=== PATIENT | female | born 1985 | race Asian ===

== ENCOUNTER 2016-12-16 06:57 | Inpatient (IN) | payer SELFPAY ==
[~2016-12-16] VITALS: Ht 167.6 cm; Wt 74.8 kg
[2016-12-16] MEDS ORDERED: LR 1,000 ML IV SCH (08:09)
[2016-12-16] MEDS ORDERED: OXYTOCIN/NORMAL SALINE 1,000 ML IV SCH (08:09)
[2016-12-16] MEDS ORDERED: LR 500 ML IV ONE ×2 (08:09→18:04)
[2016-12-16] MEDS ORDERED: NALBUPHINE HCL 10 MG/ML AMP IVP PRN (08:15)
[2016-12-16] MEDS ORDERED: NALBUPHINE HCL 10 MG/ML AMP IM PRN (08:15)
[2016-12-16] MEDS ORDERED: TERBUTALINE SULFATE 1 MG/ML VIAL SUBCUT ONE (08:15)
[2016-12-16 09:28] LABS: BASOPHILS % (AUTO) 0.3 % (0.0-2.0); EOSINOPHILS # (AUTO) 0.1 K/uL (0.0-0.4); HEMATOCRIT 36.5 % (36-48); HEMOGLOBIN 12.6 g/dL (12.0-16.0); LYMPHOCYTES # (AUTO) 1.5 K/uL (1.0-5.5); LYMPHOCYTES % (AUTO) 25.5 % (20.5-51.5); MEAN CORPUSCULAR HEMOGLOBIN 32 pg (27-31); MEAN CORPUSCULAR HGB CONC 35 % (32-36); MEAN CORPUSCULAR VOLUME 91 fL (79.0-98.0); MONOCYTES # (AUTO) 0.4 K/uL (0.0-1.0); MONOCYTES % (AUTO) 6.5 % (1.7-9.3); NEUTROPHILS % (AUTO) 66.7 % (40.0-70.0); PLATELET COUNT (AUTO) 118 K/uL (130-430); RED BLOOD CELL COUNT(AUTO) 3.99 MIL/uL (4.2-6.2); RED CELL DISTRIBUTION WIDTH 12.1 % (9.0-15.0)
[2016-12-16 11:07] VITALS: BP 131/87; PULSE 78; RESP 18; TEMP 98.2
[2016-12-16] MEDS ORDERED: FENT2mCg/mL-ROPIVA0.2%/NS EPID 150 ML EP SCH (15:09)
[2016-12-16] MEDS ORDERED: FENT2mCg/mL-ROPIVA0.2%/NS EPID 150 ML EP ONE (15:09)
[2016-12-16] MEDS ORDERED: ePHEDrine sulfate 50 MG/ML VIAL IVP PRN (18:15)
[2016-12-17] MEDS ORDERED: FENT2mCg/mL-ROPIVA0.2%/NS EPID 150 ML EP ONE (01:06)
[2016-12-17] MEDS ORDERED: METHYLERGONOVINE MALEATE 0.2 MG/ML AMP ONE (07:42)
[2016-12-17] MEDS ORDERED: HYDROcodone/ACETAMIN 5-325 MG TAB (NORCO/ VICODIN) PO PRN (08:00)
[2016-12-17] MEDS ORDERED: DERMOPLAST SPRAY TP PRN (08:00)
[2016-12-17] MEDS ORDERED: DIPH-TET-PERTUS Vaccine 0.5 ML VIAL (ADACEL) I.M. PRN (08:00)
[2016-12-17] MEDS ORDERED: TEMAZEPAM 15 MG CAPSULE PO PRN (08:00)
[2016-12-17] MEDS ORDERED: METHYLERGONOVINE MALEATE 0.2 MG/ML AMP IM PRN (08:00)
[2016-12-17] MEDS ORDERED: MEASLES,MUMPS&RUBELLA VACC/PF 12500 UNIT/0.5 ML VIAL SUBQ PRN (08:00)
[2016-12-17] MEDS ORDERED: OXYTOCIN 10 UNIT/ML VIAL IM PRN (08:00)
[2016-12-17] MEDS: OXYCODONE/ACETAMINOPHEN 5-325 TABLET PO PRN (08:19)
[2016-12-17] MEDS: FERROUS SULFATE 325 MG TABLET.DR PO SCH ×2 (09:35→15:41)
[2016-12-17] MEDS: IBUPROFEN 800 MG TABLET PO PRN ×3 (12:28→23:45)
[2016-12-17] MEDS ORDERED: SENNOSIDES/DOCUSATE SODIUM 1 TAB TABLET(SENOKOT-S) PO SCH (21:00)
[2016-12-18] MEDS: IBUPROFEN 800 MG TABLET PO PRN ×3 (06:04→17:20)
[2016-12-18 06:53] LABS: HEMATOCRIT 27.2 % (36-48); HEMOGLOBIN 9.2 g/dL (12.0-16.0)
[2016-12-18] MEDS ORDERED: MILK OF MAGNESIA 30 ML UDC PO ONE (08:00)
[2016-12-18] MEDS: FERROUS SULFATE 325 MG TABLET.DR PO SCH ×3 (09:00→22:20)
[2016-12-18] MEDS: OXYCODONE/ACETAMINOPHEN 5-325 TABLET PO PRN ×2 (10:37→22:21)
[2016-12-18] MEDS ORDERED: FLU VACC QS 2016-17(36MOS+)/PF 0.5 ML/SYR SYRINGE I.M. PRN (16:45)
[2016-12-19] MEDS: IBUPROFEN 800 MG TABLET PO PRN (04:29)
[2016-12-19] MEDS: OXYCODONE/ACETAMINOPHEN 5-325 TABLET PO PRN (08:51)
[2016-12-19] MEDS: FERROUS SULFATE 325 MG TABLET.DR PO SCH (09:00)
== END 2016-12-19 17:00 | disposition home or self-care (01) | DRG 775 ==
LOC: SPU 06:57
PROVIDERS: ADMIT Obstetrics & Gynecology; ATTEND Obstetrics & Gynecology
PROC: 10E0XZZ Delivery of Products of Conception, External Approach (ICD-10-PCS; principal; 2016-12-17)
PROC: 0W8NXZZ Division of Female Perineum, External Approach (ICD-10-PCS; 2016-12-17)
PROC: 3E0S3CZ (ICD-10-PCS; 2016-12-17)
PROC: 00HU33Z Insertion of Infusion Device into Spinal Canal, Percutaneous Approach (ICD-10-PCS; 2016-12-17)
DX: O80 Encounter for full-term uncomplicated delivery (principal); Z37.0 Single live birth; Z3A.39 39 weeks gestation of pregnancy
CPT/HCPCS: 36415; 81002-TC; 85018-TC; 85025; 86592; 86886; 86900; 86901; 90715; J2210; J2590; J3010; Q2037